=== PATIENT | female | born 1960 | race Caucasian/White ===

== ENCOUNTER → 2016-06-28 | Outpatient (CLI) | payer BC ==
[~2016-06-28] MED LIST: ABILIFY PO; ASACOL400 MG PO; ASPIRIN81 M2 PO; ATIVAN0.5 M1 PO; BACLOFEN10 MG PO; BACTRIM DS TABL1 TA1 PO; BUTALB-APAP-CA1 EACH; CALCIUM 500 + D1 TAB PO; CALPHRON667 MG PO; CLIMARA1 PATCH.W1; DOLOPHINE HCL5 MG PO; FLEXERIL10 MG PO; GLUCOSAMINE500 M1; GLUCOSAMINE500 M1 DOB; GUAIFENESIN600 MG PO; IBUPROFEN800 MG PO; IMMODIUM1 MG/5 M1; KEFLEX500 M1 PO; MAGIC MOUTHWASH; NEURONTIN300 MG PO; NEXIUM PO; PHENERGAN PR; PHENERGAN SUPP PR; PHENERGAN25 M1 PO; PHILLIPS PROBIOTIC; TOPAMAX PO; TYLENOL #3 PO; VITAMIN D400 UNI2 PO; WELLBUTRIN SR PO; ZOFRAN ODT4 MG PO; ZYRTEC PO; [UNRECOGNIZED DRUG - OTHER]
--- NOTE | ~2016-06-28 | CT2 ---
[facility] A Service of [facility] [place] RADIOLOGY TEXT RESULTS PATIENT: VINNY MARI LOCATION: [facility] : 60 UNIT #: [id number] AGE: [address]: Raciel Briggs MD SEX: F ORDER DR: [id number] [address] [address] [id number] O MR#: [id number] Acc #: [id number] NAME: VINNY MARI : 1960 SEX: F STUDY DATE/TIME: 06/28/2016 11:10 UNIT: [facility] ROOM: STUDY DESCRIPTION: CT Abd and Pelv W Cont Attending Physician: Raciel Briggs M.D. Referring Physician: Raciel Briggs M.D. Ordering Physician: Raciel Briggs M.D. Primary Care Physician: Belen Rodrigues M.D. MEDICAL IMAGING REPORT This report is preliminary unless electronic signature is present. EXAM CT abdomen and pelvis with contrast INDICATION Right-sided abdominal pain since January of 2016. Irritable bowel syndrome. PROCEDURE Contrast-enhanced CT of the abdomen and pelvis. 100 mL of Isovue-370. This CT exam was performed with one or more of the following radiation dose reduction techniques: automatic exposure control, adjustment of mA and/or kV according to patient size, and iterative reconstruction. COMPARISON 02/22/2012 FINDINGS ABDOMEN WITH CONTRAST: Included lung bases are clear. Liver enlarged measuring 21.6 cm. Slightly low attenuation of the liver compared with the spleen nonspecific on a contrast-enhanced CT, but suspicious for steatosis. The kidneys, adrenal glands, pancreas are unremarkable. Previous cholecystectomy. Bowel loops are nondilated. Appendix is normal. PELVIS WITH CONTRAST: Previous hysterectomy. No pelvic mass or fluid. No aggressive-appearing bone lesion. IMPRESSION 1. No acute findings. 2. Hepatomegaly with suspicion for hepatic steatosis. [facility] A Service of [facility] [place] RADIOLOGY TEXT RESULTS PATIENT: VINNY MARI LOCATION: [facility] : 60 UNIT #: [id number] AGE: [address]: Raciel Briggs MD SEX: F ORDER DR: Dictated by... Pradeep Contreras M.D. THIS IS AN ELECTRONICALLY VERIFIED REPORT Pradeep Contreras M.D. at 06/29/2016 1:56 PM EED/jaky TD: 06/28/2016 14:45 JOB #: [id number] MEDICAL IMAGING REPORT Page 1 of 1
[2016-06-28 09:50] LABS: POC - CREATININE 1.02 mg/dL (0.44-1.03)
== END | disposition home or self-care (01) ==
LOC: SCT 09:33
PROVIDERS: Internal Medicine Gastroenterology
DX: K31.84 Gastroparesis (principal); K59.9 Functional intestinal disorder, unspecified; R16.0 Hepatomegaly, not elsewhere classified
CPT/HCPCS: 74177; 82565; Q9967

== ENCOUNTER → 2016-09-27 | Outpatient (CLI) | payer BC ==
--- NOTE | ~2016-09-27 | CT52 ---
[facility] A Service of [facility] RADIOLOGY TEXT RESULTS PATIENT: VINNY MARI LOCATION: [facility] : 60 UNIT #: [id number] AGE: [address]: MCKENNA GAINES PA-C SEX: F ORDER DR: [id number] [address] [address] [id number] O MR#: [id number] Acc #: [id number] NAME: VINNY MARI : 1960 SEX: F STUDY DATE/TIME: 09/27/2016 12:38 UNIT: [facility] ROOM: STUDY DESCRIPTION: CT Cervical Spine Wo Cont Attending Physician: Mckenna Gaines Pa-C Referring Physician: Mckenna Gaines Pa-C Ordering Physician: Mckenna Gaines Pa-C Primary Care Physician: Belen Rodrigues M.D. MEDICAL IMAGING REPORT This report is preliminary unless electronic signature is present. EXAM Cervical spine CT, no contrast, 09/27/2016. PROCEDURE Axial cervical spine CT without contrast with multiplanar reformats. HISTORY Neck pain since mid July. This CT exam was performed with one or more of the following radiation dose reduction techniques: automatic exposure control, adjustment of mA and/or kV according to patient size, and iterative reconstruction. FINDINGS There is reversal of lordosis, but no pita- or retrolisthesis. Multilevel flowing anterior osteophytes are seen, but there is no fracture or bone erosion or destruction. The paraspinous soft tissues are unremarkable. At C2-C3, the canal and foramina are normal. At C3-C4, there may be mild right and left foraminal narrowing and borderline canal narrowing. At C4-C5, there is no canal stenosis and no right, but mild left foraminal narrowing. At C5-C6, there is a disc and osteophyte complex with right-sided mild canal stenosis and mild left and moderate right foraminal stenosis. At C6-C7 and C7-T1, there is no substantial canal or foraminal stenosis. IMPRESSION [facility] A Service of [facility] RADIOLOGY TEXT RESULTS PATIENT: VINNY MARI LOCATION: [facility] : 60 UNIT #: [id number] AGE: [address]: MCKENNA GAINES PA-C SEX: F ORDER DR: Degenerative changes including reversal of lordosis, but no acute-appearing abnormality at any level. Dictated by... Alexei Becerra M.D. THIS IS AN ELECTRONICALLY VERIFIED REPORT Alexei Becerra M.D. at 10/06/2016 5:05 PM KADEN/adelso TD: 09/27/2016 19:08 JOB #: [id number] MEDICAL IMAGING REPORT Page 1 of 1
== END | disposition home or self-care (01) ==
LOC: SCT 12:30
DX: M50.30 Other cervical disc degeneration, unspecified cervical region (principal)
CPT/HCPCS: 72125